=== PATIENT | female | born 1980 | race Caucasian/White ===

== ENCOUNTER → 2017-05-11 | Emergency (ER) | payer OTHER ==
[~2017-05-11] VITALS: Ht 175.3 cm; Wt 68.0 kg
[~2017-05-11] MED LIST: CIPRO500 MG; KETO10TA2 PO; NORFLEX100MG PO
== END | disposition home or self-care (01) ==
LOC: ER 08:35
DX: M54.2 Cervicalgia (principal)

== ENCOUNTER 2018-09-18 08:38 | Emergency (ER) | payer OTHER ==
[~2018-09-18] VITALS: Ht 175.3 cm; Wt 65.8 kg
== END 2018-09-18 11:27 | disposition home or self-care (01) ==
LOC: ER 08:38
DX: B34.9 Viral infection, unspecified (principal)

== ENCOUNTER 2019-06-02 15:27 | Emergency (ER) | payer OTHER ==
[~2019-06-02] VITALS: Ht 175.3 cm; Wt 63.5 kg
== END 2019-06-02 21:40 | disposition home or self-care (01) ==
LOC: ER 15:27
DX: R00.2 Palpitations (principal)

== ENCOUNTER 2023-07-09 13:49 | Emergency (ER) | payer OTHER ==
[~2023-07-09] VITALS: Ht 172.7 cm; Wt 74.8 kg
== END 2023-07-09 16:45 | disposition home or self-care (01) ==
LOC: ER 13:49
DX: S69.82XA Other specified injuries of left wrist, hand and finger(s), initial encounter (principal); W22.8XXA Striking against or struck by other objects, initial encounter; Y93.89 Activity, other specified; Y92.89 Other specified places as the place of occurrence of the external cause; Z88.2 Allergy status to sulfonamides